=== PATIENT | female | born 1985 | race Caucasian/White ===

== ENCOUNTER 2016-09-20 10:13 | Emergency (ER) | payer OTHER ==
[~2016-09-20] VITALS: Ht 170.2 cm; Wt 57.3 kg
[~2016-09-20 10:13] MED LIST: CYCL10TA9 PO; DOXY100C43 PO; HYDR-4003 PO; OXYC1TAB24 PO
[2016-09-20 10:16] VITALS: BP 109/70; PULSE 80; RESP 16; O2SAT 100
--- NOTE | 2016-09-20 10:57 | ED.REPORT ---
HPI-Abd Pain F Under 40 Date of Service Sep 20, 2016 ED Provider: Sharan Payton MD Pt is a 31 y/o female presenting to the ED c/o vaginal pain and bleeding onset 1 day ago. The patient states that she was having rough sex for 4 days straight 1 day prior to onset and starting yesterday has been experiencing worsening vaginal pain and bleeding for 1 day. Her bleeding is described as more than a period although her period is scheduled to start in about 2 weeks. Inserting tampons causes intense discomfort. Associated symptoms include nausea. She has had 2 laparoscopies for endometriosis in the past and her pain now is much different.She denies fever, abdominal pain, vomiting, dysuria, bloody stool, hematuria Nursing Notes Stated Complaint: BLEEDING Chief Complaint: Female Abdominal Pain Nursing Notes Reviewed: Yes Allergies: Coded Allergies: Penicillins (Verified Allergy, Intermediate, 02/14/16) rash all over amoxicillin (Verified Allergy, Unknown, 02/14/16) tramadol HCl (Verified Allergy, Unknown, 02/14/16) Scheduled Doxycycline Monohyd (Doxycycline Monohyd) 100 Mg Capsule 100 MG PO BID Scheduled PRN Cyclobenzaprine (Cyclobenzaprine) 10 Mg Tablet 10 MG PO BID PRN PRN Spasm Hydrocodone-Acetaminophen 5-325 mg (Hydrocodone-Acetaminophen 5-325 mg) 1 Each Tablet 1 TABLET PO Q4H PRN PRN For Pain Hydrocodone-Acetaminophen 5-325 mg (Hydrocodone-Acetaminophen 5-325 mg) 1 Each Tablet 1-2 TABLET PO Q4H PRN PRN For Pain Ibuprofen (Ibuprofen) 800 Mg Tablet 800 MG PO TID PRN PRN For Pain oxyCODONE-Acetaminophen 5-325 mg (oxyCODONE-Acetaminophen 5-325 mg) 1 Each Tablet 1-2 TAB PO Q6H PRN PRN For Pain General Time Seen by MD: 10:56 Chief Complaint Other (pelvic pain and vag bleeding) Hx Obtained From: Patient Arrived By: Walk-in Sudden in Onset?: No Onset Occurred: Yesterday Symptom Duration: Since onset Progression since Onset: Gradually worsening Location: : Pelvis Quality: Painful Radiation: : Does not radiate Severity: Current: Moderate Severity: Maximum: Moderate Similar Sx Previous: No Past Medical History Past Medical History h/o cholelithiasis endometriosis back problems h/o pericarditis h/o pleurisy Nephrolithiasis Ureteral colic and stone with stenting DJD L4L5 bursitis to right hip sciatica Past Surgical History ureteral stent laparoscopy x2 x3 Family History Noncontributory Smoking History Former Smoker Social History Alcohol Use: Denies alcohol use Drug Use: Denies drug use Other Social History: Good social support, Ambulatory Status Independent Review of Systems Constitutional: Denies: Chills, Fever Respiratory: Denies: Non-productive cough, Shortness of breath Cardiovascular: Denies: Chest pain, Dyspnea on exertion GI: Reports: Nausea, Denies: Abdominal pain, Bloody/tarry stool, Vomiting Female: Reports: Pelvic pain, Vaginal bleeding - abnl, Denies: Dysuria, Hematuria Complete sys rev & neg: except as marked. Physical Exam Initial Vital Signs Vital Signs (First) Date Time Temp Pulse Resp B/P Pulse Ox O2 Delivery O2 Flow Rate FiO2 09/20/16 10:16 36.8 80 16 109/70 100 Room Air Initial VS: Reviewed, Vital signs normal Head / Eyes: Atraumatic, Normocephalic, PERRL ENT: Mucous membranes moist, Conjunctiva normal, No scleral icterus Neck: Supple, Full range of motion Extremities: Vascular intact, Neuro intact, No swelling, No tenderness Skin: Warm, Dry, No cyanosis Neurologic: Alert, Oriented, Nonfocal Psychiatric: Mood/affect normal, Behavior normal, Normal thought content General/Constitutional: Awake, Alert, No acute distress, Cooperative, Not toxic appearing Respiratory / Chest: Atraumatic, Breath sounds NL, Breath sounds = bilat, No respiratory distress, No rales, No rhonchi, No wheezing, No retractions, No stridor, No chest tenderness, No chest wall deformity, No crepitus Cardiovascular: Heart rate NL, Regular rhythm, Heart sounds NL, No gallop, No murmurs, No rubs, Cap refill not delayed, Peripheral circulation NL Abdomen: Atraumatic, No distention, No palpable mass Tenderness/Guarding/Rebound: Positive: Guarding involuntary, Tender RLQ... ( Moderate) Positive Psoas sign Female Genitourinary: Cell Cleaner present (ALEX Tucker), External genitalia NL, No discharge, No foreign body, No adnexal mass Minor epithelial abrasion at introitus. Along entire vaginal canal minor abrasions which are sensitive to touch and tender. Bleeding from cervix, dark and bright red blood. Nonparous cervix. No overt hemmorrhagic bleeding. Manual exam: Significant cervical motion tenderness. Uterus not enlarged Interpretation & Diagnostics Lab Results Interpretation Result Diagram: 09/20/16 1125 09/20/16 1125 Test 09/20/16 11:03 09/20/16 11:17 09/20/16 11:25 Hold Urine Received (Received) Urine Color Yellow (YELLOW) Urine Appearance Hazy (CLEAR,HAZY) Urine pH 6.0 (5.0-8.0) Urine Specific [place] 1.025 (1.003-1.035) Urine Protein Negativemg/dL (NEG,TRACE) Urine Glucose (UA) Negativemg/dL (NEGATIVE) Urine Ketones Negativemg/dL (NEGATIVE) Urine Occult Blood Negative (NEGATIVE) Urine Nitrite Negative (NEGATIVE) Urine Bilirubin Negative (NEGATIVE) Urine Urobilinogen Normalmg/dL (NORMAL) Urine Leukocyte Esterase Negative (NEGATIVE) Urine RBC 3-10/hpf (0-2) Urine WBC 0-5/hpf (0-5) Urine Epithelial Cells Occasional/hpf (NONE-MOD) Urine Crystals None seen (NONE SEEN) Urine Bacteria Few/hpf (NONE-FEW) Urine Hyaline Casts None/lpf (NONE) Urine Granular Casts None seen (NONE SEEN) Urine Waxy Casts None seen (NONE SEEN) Urine Red Blood Cell Casts None seen (NONE SEEN) Urine White Blood Cell Casts None seen (NONE SEEN) Urine Mucus None seen (None Seen) Urine Trichomonas None seen (NONE SEEN) Urine Yeast None (NONE SEEN) Urinalysis Comment None Urine Culture Reflexed Not indicated White Blood Count 5.1th/mm3 (3.8-10.1) Red Blood Count 4.01mil/mm3 (3.90-5.20) Hemoglobin 11.3g/dL (12.0-15.6) Hematocrit 36.2% (35.0-46.0) Mean Corpuscular Volume 90.3fL (81-100) Mean Corpuscular Hemoglobin 28.2pg (27.0-35.0) Mean Corpuscular Hemoglobin Concent 31.2% (32.0-37.0) Red Cell Distribution Width 14.5% (12.3-15.4) Platelet Count 246bil/L (150-400) Neutrophils (%) (Auto) 41.2% (40-74) Lymphocytes (%) (Auto) 46.1% (14-46) Monocytes (%) (Auto) 10.5% (4-12) Eosinophils (%) (Auto) 1.8% (0-5) Basophils (%) (Auto) 0.2% (0-3) Sodium Level 138mEq/L (134-144) Potassium Level 3.9mEq/L (3.5-5.2) Chloride Level 101mEq/L (97-108) Carbon Dioxide Level 25mmol/L (18-29) Blood Urea Nitrogen 15mg/dL (6-20) Creatinine 0.67mg/dL (0.57-1.00) Estimat Glomerular Filtration Rate 148mL/min (>59) Glucose Level 96mg/dL (60-99) Calcium Level 9.4mg/dL (8.5-10.1) Magnesium Level 1.7mg/dL (1.6-2.6) Total Bilirubin 0.2mg/dL (0.0-1.2) Aspartate Amino Transf (AST/SGOT) 25U/L (0-50) Alanine Aminotransferase (ALT/SGPT) 15U/L (0-32) Alkaline Phosphatase 50U/L (25-150) Total Protein 6.9g/dL (6.4-8.4) Albumin 3.9g/dL (3.4-5.0) Lipase 46U/L (13-60) Hold [place] Tube Received (Received) US Focused non-OB Pelvis Negative per tech - official pending Exam Performed by: [facility] pract Exam Type: Diagnostic Exam Interpreted by: [facility] pract Re-Eval/Medical Decision Re-Evaluation/Progress : Time of Eval: 12:37 Patient Status: Condition improved, Moderate relief, Pain improved Re-Evaluation/Progress Note: Pt rechecked. Informed pt of plan for treatment. Pt understands and agrees with plan for treatment. F/U instructions and RTER warnings given. All questions addressed. Counseled Regarding: Diagnosis, Lab results, Need for follow-up, When/why to return to ED Discharge & Departure Primary Impression: Vaginal trauma Encounter type: initial encounter Qualified Code: S39.93XA - Unspecified injury of pelvis, initial encounter Disposition: Home Discharge Condition All VS Reviewed: Yes Condition: Stable Additional Instructions: No dangerous injury is identified. The majority of the bleeding is coming from the cervix itself. There are numerous small superficial abrasions within the vagina. I recommend ibuprofen 800 mg every 8 hours. Hydrocodone/APAP 1 or 2 as needed for more severe pain. Follow-up right away for fainting, excessive vomiting, fever greater than 101 or other new or severe symptoms. Referrals: [facility] Scribe Attestation Portions of this note were transcribed by Thang Paula. I, Dr. Payton personally performed the history, physical exam and medical decision-making; I reviewed and confirmed the accuracy of the information in the transcribed note. Signed by Thang Paula and Sara Landrum, 09/20/16 - 1115 Sharan Payton MD Sep 20, 2016 10:57 THANG PAULA Sep 20, 2016 11:09
[2016-09-20] MEDS ORDERED: 0.9% Sodium Chloride 1,000 ML IV ONE (11:09)
[2016-09-20] MEDS ORDERED: HYDROmorphone 1 mg/mL Inj IVPUSH PRN (11:10)
[2016-09-20 11:36] LABS: BASOPHILS % (AUTO) 0.2 % (0-3); EOSINOPHILS % (AUTO) 1.8 % (0-5); MONOCYTES % (AUTO) 10.5 % (4-12); Mean Corpuscular Hemoglobin 28.2 pg (27.0-35.0); Mean Corpuscular Volume 90.3 fL (81-100); NEUTROPHILS % (AUTO) 41.2 % (40-74); Platelet Count 246 bil/L (150-400)
[2016-09-20 11:40] LABS: APPEARANCE,URINE HAZY (CLEAR,HAZY); COLOR,URINE YELLOW (YELLOW); OCCULT BLOOD,URINE NEGATIVE (NEGATIVE); UROBILINOGEN,URINE NORMAL (NORMAL)
[2016-09-20 12:07] LABS: Magnesium 1.7 mg/dL (1.6-2.6)
[2016-09-20] MEDS ORDERED: HYDROmorphone 1 mg/mL Inj IVPUSH ONE (12:10)
[2016-09-20] MEDS ORDERED: IBUP800T28 PO (12:42)
[2016-09-20] MEDS ORDERED: HYDR-4003 PO (12:42)
[2016-09-20 12:52] VITALS: BP 106/61; PULSE 52; RESP 20; O2SAT 100
--- NOTE | 2016-09-20 13:21 | DRSVH ---
PROCEDURE: US PELVIC SONOGRAM INDICATIONS: pelvic pain TECHNIQUE: Real-time scanning was performed of the pelvic organs, with image documentation. Additional endovagi nal scanning was not performed. COMPARISON: None. FINDINGS: (orthogonal measurements) Uterus size: 9.71 cm, 4.71 cm Endometrium thickness: 9.20 mm Right ovary size: 2.92 cm, 1.69 cm, 1.96 cm Left ovary size: 2.97 cm, 1.74 cm, 1.84 cm Transabdominal scanning: Limited scanning through the kidneys shows no hydronephrosis. No pathologi c free abdominal or pelvic fluid. Endovaginal scanning: Uterus: Uterus is normal in size and appearance. Endometrium is within normal physiologic limits. Ovaries: Within normal physiologic limits. IMPRESSION: No source for pelvic pain identified sonographically. Dictated by: Tony Guerrero [facility] Interpreted: Taylor Gusman MD on 09/20/2016 at 13:20 Transcribed by: GABRIEL on 09/20/2016 at 13:21 Approved by: Taylor Gusman MD, PhD on 09/20/2016 at 16:43
== END 2016-09-20 12:48 | disposition home or self-care (01) ==
LOC: SED 10:13
DX: S39.93XA Unspecified injury of pelvis, initial encounter (principal); X58.XXXA Exposure to other specified factors, initial encounter; Y93.89 Activity, other specified; Y92.89 Other specified places as the place of occurrence of the external cause; Y99.8 Other external cause status; Z96.0 Presence of urogenital implants; Z87.891 Personal history of nicotine dependence; Z88.0 Allergy status to penicillin; Z88.1 Allergy status to other antibiotic agents; Z88.5 Allergy status to narcotic agent
CPT/HCPCS: 76856; 80053; 81000; 81025; 83690; 83735; 85025; 96361; 96374; 96376; 99285; J1170; J7030

== ENCOUNTER 2016-10-28 20:04 | Emergency (ER) | payer MEDICAID, OTHER ==
[~2016-10-28] VITALS: Ht 172.7 cm; Wt 59.1 kg
[~2016-10-28 20:04] MED LIST changes: +IBUP800T28 PO
[2016-10-28 20:06] VITALS: BP 127/82; PULSE 122; RESP 20; O2SAT 98
--- NOTE | 2016-10-28 20:15 | ED.REPORT ---
HPI-Abd Pain F Under 40 Date of Service October 28, 2016 ED Provider: Dr. Salinas Pt is a healthy 31 year old female who presents to the ED with complaints of nausea, vomiting and abdominal pain that started several days ago. She denies any diarrhea, cough, fevers, shortness of breath, chest pain or any other complaints. She reports that her abdominal pain has been diffuse and worsens with eating. To her knowledge, she is not . Nursing Notes Stated Complaint: STOMACH PAIN Chief Complaint: Female Abdominal Pain Nursing Notes Reviewed: Yes Allergies: Coded Allergies: Penicillins (Verified Allergy, Intermediate, 10/28/16) rash all over amoxicillin (Verified Allergy, Unknown, 10/28/16) tramadol HCl (Verified Allergy, Unknown, 10/28/16) Scheduled Doxycycline Monohyd (Doxycycline Monohyd) 100 Mg Capsule 100 MG PO BID Scheduled PRN Cyclobenzaprine (Cyclobenzaprine) 10 Mg Tablet 10 MG PO BID PRN PRN Spasm Hydrocodone-Acetaminophen 5-325 mg (Hydrocodone-Acetaminophen 5-325 mg) 1 Each Tablet 1 TABLET PO Q4H PRN PRN For Pain Hydrocodone-Acetaminophen 5-325 mg (Hydrocodone-Acetaminophen 5-325 mg) 1 Each Tablet 1-2 TABLET PO Q4H PRN PRN For Pain Ibuprofen (Ibuprofen) 800 Mg Tablet 800 MG PO TID PRN PRN For Pain oxyCODONE-Acetaminophen 5-325 mg (oxyCODONE-Acetaminophen 5-325 mg) 1 Each Tablet 1-2 TAB PO Q6H PRN PRN For Pain General Time Seen by MD: 20:15 Chief Complaint Abdominal pain Hx Obtained From: Patient Arrived By: Walk-in Sudden in Onset?: Yes Onset Occurred: 3 days ago Symptom Duration: Since onset Location: : Diffuse Quality: Painful Severity: Current: Mild Severity: Maximum: Moderate Similar Sx Previous: Yes Past Medical History Past Medical History h/o cholelithiasis endometriosis back problems h/o pericarditis h/o pleurisy Nephrolithiasis Ureteral colic and stone with stenting DJD L4L5 bursitis to right hip sciatica Past Surgical History ureteral stent laparoscopy x2 x3 Family History Noncontributory Smoking History Former Smoker Social History Occasional THC use Alcohol Use: Denies alcohol use Drug Use: Denies drug use Other Social History: Good social support, Ambulatory Status Independent Review of Systems Constitutional: Denies: Chills, Fever, Malaise, Weakness - generalized Respiratory: Denies: Non-productive cough, Shortness of breath, Wheezing Cardiovascular: Denies: Chest pain, Syncope GI: Reports: Abdominal pain, Nausea, Vomiting, Denies: Constipation, Diarrhea Female: Denies: Dysuria Musculoskeletal: Denies: Back pain, Extremity pain, Neck pain Complete sys rev & neg: except as marked. Physical Exam Initial Vital Signs Vital Signs (First) Date Time Temp Pulse Resp B/P Pulse Ox O2 Delivery O2 Flow Rate FiO2 10/28/16 20:06 37.3 122 20 127/82 98 Room Air Initial VS: Reviewed Head / Eyes: Atraumatic, Normocephalic, PERRL ENT: Mucous membranes moist, Conjunctiva normal, No scleral icterus Neck: Supple, Non-tender, Full range of motion Skin: Warm, Dry, No cyanosis Neurologic: Alert, Oriented, Nonfocal General/Constitutional: Awake, Alert Distress / Hydration: Positive: Distress moderate Appearance / Presentation: Positive: Uncomfortable Actively vomiting Respiratory / Chest: Atraumatic, Breath sounds NL, Breath sounds = bilat, No respiratory distress Cardiovascular: Heart rate NL, Regular rhythm, Heart sounds NL, No gallop, No murmurs, No rubs Abdomen: No guarding, No rebound Tenderness/Guarding/Rebound: Positive: Tender RUQ... (Moderate) Back: Atraumatic, Inspection NL, Non-tender Interpretation & Diagnostics Lab Results Interpretation Result Diagram: 10/28/16 2100 10/28/16 2100 Test 10/28/16 21:00 10/28/16 21:20 White Blood Count 7.2th/mm3 (3.8-10.1) Red Blood Count 4.36mil/mm3 (3.90-5.20) Hemoglobin 13.0g/dL (12.0-15.6) Hematocrit 39.1% (35.0-46.0) Mean Corpuscular Volume 90fL (81-100) Mean Corpuscular Hemoglobin 29.8pg (27.0-35.0) Mean Corpuscular Hemoglobin Concent 33.2% (32.0-37.0) Red Cell Distribution Width 13.9% (12.3-15.4) Platelet Count 315bil/L (150-400) Neutrophils (%) (Auto) 51.1% (40-74) Lymphocytes (%) (Auto) 42.1% (14-46) Monocytes (%) (Auto) 5.8% (4-12) Eosinophils (%) (Auto) 0.6% (0-5) Basophils (%) (Auto) 0.4% (0-3) Sodium Level 141mEq/L (134-144) Potassium Level 3.8mEq/L (3.5-5.2) Chloride Level 101mEq/L (97-108) Carbon Dioxide Level 26mmol/L (18-29) Blood Urea Nitrogen 13mg/dL (6-20) Creatinine 0.60mg/dL (0.57-1.00) Estimat Glomerular Filtration Rate 168mL/min (>59) Glucose Level 98mg/dL (60-99) Lactic Acid Level 1.2mmol/L (0.4-2.0) Calcium Level 9.4mg/dL (8.5-10.1) Magnesium Level 2.0mg/dL (1.6-2.6) Total Bilirubin 0.3mg/dL (0.0-1.2) Aspartate Amino Transf (AST/SGOT) 28U/L (0-50) Alanine Aminotransferase (ALT/SGPT) 17U/L (0-32) Alkaline Phosphatase 89U/L (25-150) Total Protein 7.8g/dL (6.4-8.4) Albumin 4.4g/dL (3.4-5.0) Lipase 61U/L (13-60) Human Chorionic Gonadotropin, Qual <0.500 (Negative) Urine Color Yellow (YELLOW) Urine Appearance Clear (CLEAR,HAZY) Urine pH 6.0 (5.0-8.0) Urine Specific [place] 1.030 (1.003-1.035) Urine Protein Negativemg/dL (NEG,TRACE) Urine Glucose (UA) Negativemg/dL (NEGATIVE) Urine Ketones Negativemg/dL (NEGATIVE) Urine Occult Blood Large (NEGATIVE) Urine Nitrite Negative (NEGATIVE) Urine Bilirubin Negative (NEGATIVE) Urine Urobilinogen 1.0mg/dL (NORMAL) Urine Leukocyte Esterase Negative (NEGATIVE) Urine RBC 11-50/hpf (0-2) Urine WBC 0-5/hpf (0-5) Urine Epithelial Cells None/hpf (NONE-MOD) Urine Crystals None seen (NONE SEEN) Urine Bacteria Few/hpf (NONE-FEW) Urine Hyaline Casts None/lpf (NONE) Urine Granular Casts None seen (NONE SEEN) Urine Waxy Casts None seen (NONE SEEN) Urine Red Blood Cell Casts None seen (NONE SEEN) Urine White Blood Cell Casts None seen (NONE SEEN) Urine Mucus None seen (None Seen) Urine Trichomonas None seen (NONE SEEN) Urine Yeast None (NONE SEEN) Urinalysis Comment None Urine Culture Reflexed Not indicated Lab Results Interpretation: US abdomen: Impression: hepatic echogenicity in the upper normal range to borderline steatosis, statistically. Otherwise morphologically unremarkable exam. CT Abd / Pelvis Interpretation Impression: No signs of appendicitis, diverticulitis or mechanical obstruction. Large amount of intracolonic stool and colonic distention. Other findings above. Study type: Abdominal CT IV contrast Re-Eval/Medical Decision Source of Hx: Old records Re-Evaluation/Progress : Time of Eval: 00:34 Re-Evaluation/Progress Note: Pt is rechecked and informed of her US results. She reports continued pain. She is informed of the plan to CT her abdomen. She understands and agrees, all questions are addressed. Counseled Regarding: Diagnosis, Lab results, When/why to return to ED Discharge & Departure Primary Impression: Abdominal pain Abdominal location: epigastric Qualified Code: R10.13 - Epigastric pain Additional Impressions: Gastritis Gastritis type: unspecified gastritis Chronicity: acute Gastritis bleeding : presence of bleeding unspecified Qualified Code: K29.00 - Acute gastritis without bleeding Constipation Constipation type: unspecified constipation type Qualified Code: K59.00 - Constipation, unspecified Disposition: Home Discharge Condition All VS Reviewed: Yes Condition: Stable Patient Instructions: Acute Abdominal Pain (ED), Constipation (ED), Gastritis ( ED) Additional Instructions: The CT scan shows thickening of the gastric wall. You also have at least moderate constipation. Remainder of the internal organs look good. You have most likely renal cysts. Your gallbladder looked normal. I would like you to set up a follow-up with your primary care physician for later this week. Take Protonix once daily for 4 weeks. Take MiraLAX 17 g twice daily to help regulate your bowel movements. Do not drive tonight as you have received sedating medications. Return if any problems or any new or worsening symptoms. Referrals: Ashley Suarez DO (PCP) Scribmelody Attestation Portions of this note were transcribed by Edie Cee. I, Dr. Salinas personally performed the history, physical exam and medical decision-making; I reviewed and confirmed the accuracy of the information in the transcribed note. Signed by: Sara Valera, 10/28/2016 [Time]. copies to: Ashley Suarez Todd P DO October 28, 2016 20:15 JULES CEE October 28, 2016 20:58
[2016-10-28] MEDS ORDERED: 0.9% Sodium Chloride 1,000 ML IV ONE (20:59)
[2016-10-28] MEDS ORDERED: Pantoprazole 4 mg/mL 10 mL Inj IVPUSH ONE (21:00)
[2016-10-28] MEDS: Ondansetron 2 mg/mL 2 mL Inj IVPUSH PRN ×2 (21:23→23:29)
[2016-10-28] MEDS: HYDROmorphone 1 mg/mL Inj IVPUSH PRN ×3 (21:23→23:29)
[2016-10-28 21:24] LABS: BASOPHILS % (AUTO) 0.4 % (0-3); EOSINOPHILS % (AUTO) 0.6 % (0-5); MONOCYTES % (AUTO) 5.8 % (4-12); Mean Corpuscular Hemoglobin 29.8 pg (27.0-35.0); Mean Corpuscular Volume 90 fL (81-100); NEUTROPHILS % (AUTO) 51.1 % (40-74); Platelet Count 315 bil/L (150-400)
[2016-10-28 21:34] LABS: APPEARANCE,URINE CLEAR (CLEAR,HAZY); COLOR,URINE YELLOW (YELLOW); OCCULT BLOOD,URINE LARGE (NEGATIVE)
[2016-10-29 00:05] VITALS: BP 130/80; PULSE 110; RESP 18; O2SAT 97
[2016-10-29] MEDS: HYDROmorphone 1 mg/mL Inj IVPUSH PRN (01:04)
[2016-10-29] MEDS ORDERED: HYDROmorphone 1 mg/mL Inj IVPUSH ONE (01:05)
[2016-10-29 02:24] VITALS: BP 126/78; PULSE 100; RESP 17; O2SAT 98
--- NOTE | 2016-10-29 08:26 | DRSVH ---
PROCEDURE: US ABDOMEN INDICATIONS: ruq pain, vomiting TECHNIQUE: Real-time scanning was performed of the abdominal and retroperitoneal organs, with image documentatio n. COMPARISON: Located Within [facility], CT, CT ABD PELVIS W CON, 10/29/2016, 1:30. [facility], US, ABDOMEN SONOGRAM, 12/06/2013, 17:37. FINDINGS: Liver length: 16.03 cm Gallbladder Wall Thickness: 2.50 mm CBD: 1.20 mm Spleen length: 9.25 cm Right kidney length: 10.46 cm Left kidney length: 10.51 cm Aorta(Proximal): 1.66 cm Aorta(Mid): 1.33 cm Aorta(Distal): 1.28 cm RCIA: 9.40 mm LCIA: 7.50 mm Liver: Liver is normal in size and homogeneous in echotexture. Gallbladder: No gallstones. No gallbladder wall thickening, pericholecystic fluid or sonographic Mu rphy's sign. Biliary ducts: Intrahepatic bile ducts are non-dilated. Extrahepatic bile duct caliber is normal. Normal is 6-7 mm or less in diameter, or 10 mm or less post-cholecystectomy. Pancreas: Visualized portions of the pancreas are sonographically normal. Spleen: Spleen is normal in size and homogeneous in echotexture. Kidneys: Kidneys are normal in size and echotexture. No hydronephrosis or nephrolithiasis. No shu d masses. Aorta: Visualized aorta is normal in caliber at less than 3 cm. Iliacs: Proximal common iliac arteries are normal in caliber at less than 2.5 cm. IVC: Intrahepatic inferior vena cava is patent. Miscellaneous: No free abdominal fluid. IMPRESSION: Normal abdominal ultrasound exam. No significant discrepancy with the retail shift supervisor radiology preliminary report. Dictated by: Sunshine Delatorre M.D. on 10/29/2016 at 8:23 Approved by: Sunshine Delatorre M.D. on 10/29/2016 at 8:24
--- NOTE | 2016-10-29 08:31 | DRSVH ---
PROCEDURE: CT ABDOMEN AND PELVIS WITH CONTRAST ([id number]) INDICATIONS: midline abdominal pain, TECHNIQUE: After the administration of intravenous contrast, 5 mm thick sections acquired from the diaphragm to the symphysis. 5 mm coronal and sagittal reformats were acquired. For radiation dose reduction, the following was used: automated exposure control, adjustment of mA and/or kV according to patient siz e. COMPARISON: [facility], CT, ABD/PELVIS W/CON (PNL), 04/13/2009, 16:06. FINDINGS: Image quality: Excellent. ABDOMEN: Lung bases: Lung bases are clear. Heart size is normal. Solid organs: Liver and spleen are normal in size and enhancement. Gallbladder is radiographically normal. Biliary system is non dilated. Pancreas enhances normally. No adrenal nodules. Kidneys de monstrate normal size and enhancement, without hydronephrosis. Peritoneum and bowel: Bowel loops demonstrate normal wall thickness and caliber. No free fluid or a ir. Nodes and vessels: No retroperitoneal or mesenteric adenopathy by size criteria. Aorta and inferior vena cava are normal in size. Miscellaneous: No ventral hernias. PELVIS: Genitourinary: Bladder wall thickness is normal. Uterus is present with prominent endometrial strip e which is normal in a premenopausal female. Miscellaneous: No inguinal hernias or adenopathy. Bones: No suspicious bony lesions. No vertebral body compression fractures. IMPRESSION: 1. No CT evidence of acute abdominal or pelvic pathology. 2. There are no discrepancies with the pulmonary report. Dictated by: Luis Kwon M.D. on 10/29/2016 at 8:20 Approved by: Luis Kwon M.D. on 10/29/2016 at 8:29
== END 2016-10-29 02:25 | disposition home or self-care (01) ==
LOC: SED 20:04
DX: K29.00 Acute gastritis without bleeding (principal); K59.00 Constipation, unspecified; Z87.891 Personal history of nicotine dependence; Z96.0 Presence of urogenital implants; Z88.0 Allergy status to penicillin; Z88.1 Allergy status to other antibiotic agents; Z88.8 Allergy status to other drugs, medicaments and biological substances
CPT/HCPCS: 36415; 74177; 76700; 80053; 81000; 81025; 83605; 83690; 83735; 84703; 85025; 96361; 96374; 96375; 96376; 99285; J1170; J2405; J7030; Q9967

== ENCOUNTER 2016-11-12 21:35 | Emergency (ER) | payer OTHER ==
[~2016-11-12] VITALS: Ht 170.2 cm; Wt 59.1 kg
[2016-11-12 21:51] VITALS: BP 124/85; PULSE 74; RESP 18; O2SAT 99
--- NOTE | 2016-11-12 23:10 | ED.REPORT ---
HPI-General Illness Date of Service Nov 12, 2016 ED Provider: Aristeo Kim MD A 31 year old female with a history of sciatica presents to the ED due to loss of consciousness. The pt closed her car door at 20:00 tonight and hit the right side of her forehead. She briefly lost consciousness, waking up on the ground. The pt does not believe that she injured her neck during the fall. She took ibuprofen directly after this episode and rested. The pt is now complaining of a small laceration on her forehead, a headache and mild nausea but denies neck pain, blurred vision, chest pain, weakness, numbness or tingling. The pt's tetanus vaccination is up to date. Nursing Notes Stated Complaint: PASSED OUT AFTER HITTING HEAD WITH CAR DOOR Chief Complaint: Head, Face, Neck Trauma Nursing Notes Reviewed: Yes Allergies: Coded Allergies: Penicillins (Verified Allergy, Intermediate, 10/28/16) rash all over amoxicillin (Verified Allergy, Unknown, 10/28/16) tramadol HCl (Verified Allergy, Unknown, 10/28/16) Scheduled Doxycycline Monohyd (Doxycycline Monohyd) 100 Mg Capsule 100 MG PO BID Scheduled PRN Cyclobenzaprine (Cyclobenzaprine) 10 Mg Tablet 10 MG PO BID PRN PRN Spasm Hydrocodone-Acetaminophen 5-325 mg (Hydrocodone-Acetaminophen 5-325 mg) 1 Each Tablet 1 TABLET PO Q4H PRN PRN For Pain Hydrocodone-Acetaminophen 5-325 mg (Hydrocodone-Acetaminophen 5-325 mg) 1 Each Tablet 1-2 TABLET PO Q4H PRN PRN For Pain Ibuprofen (Ibuprofen) 800 Mg Tablet 800 MG PO TID PRN PRN For Pain oxyCODONE-Acetaminophen 5-325 mg (oxyCODONE-Acetaminophen 5-325 mg) 1 Each Tablet 1-2 TAB PO Q6H PRN PRN For Pain General Time Seen by : 23:07 Chief Complaint Other (Loss of consciousness) Hx Obtained From: Patient Arrived By: Walk-in Sudden in Onset?: Yes Onset Occurred: 1 - 4 hours ago Recent Healthcare: No recent hospitalization, Recent doctor visit Similar Sx Previous: No Past Medical History Past Medical History h/o cholelithiasis endometriosis back problems h/o pericarditis h/o pleurisy Nephrolithiasis Ureteral colic and stone with stenting DJD L4L5 bursitis to right hip sciatica Past Surgical History ureteral stent laparoscopy x2 x3 Family History Noncontributory Smoking History Former Smoker Social History Occasional THC use Alcohol Use: Denies alcohol use Drug Use: Denies drug use Other Social History: Good social support, Ambulatory Status Independent Review of Systems small laceration to forehead Full Review of Systems Respiratory: Denies: Non-productive cough, Shortness of breath Cardiovascular: Denies: Chest pain GI: Reports: Nausea Musculoskeletal: Denies: Neck pain Skin: Denies Rash Neurologic: Reports: Change LOC, Headache, Denies: Numbness, Vision change, Weakness Complete sys rev & neg: except as marked. Physical Exam Constitutional: Well-developed, well-nourished. Not diaphoretic. Head: Normocephalic. Small superficial abrasion to right forehead. Diffuse tenderness to the right temporal portion of the skull. Mouth/Throat: Oropharynx is clear and moist. No oropharyngeal exudate. Eyes: EOM are normal. Pupils are equal, round, and reactive to light. Neck: Supple, no tracheal deviation. Lower cervical spine tenderness. Cardiovascular: Normal rate, regular rhythm. Equal and intact distal pulses throughout. Pulmonary/Chest: Effort normal and breath sounds normal. No respiratory distress. Abdominal: Soft. No distension. There is no tenderness, rebound, or guarding. Bowel sounds present. Musculoskeletal: Range of motion grossly intact, moving all extremities. No edema or tenderness appreciated. Neurological: AOx3. Grossly nonfocal exam. Strength and sensation intact and equal to bilateral upper and lower extremities. Skin: Warm and dry, no rashes or pallor appreciated. No ecchymosis behind right ear. Psychiatric: Appropriate mood and affect. Behavior appears normal. Vital Signs Vital Signs Date Time Temp Pulse Resp B/P Pulse Ox O2 Delivery O2 Flow Rate FiO2 11/12/16 21:51 36.6 74 18 124/85 99 Room Air Initial VS: Reviewed Interpretation & Diagnostics CT Head Interpretation CONCLUSION: Normal non-contrast CT scan of the head. Interpretation / Wet Read by: Interpret - Radiologist CT C-Spine Interpretation CONCLUSION: No acute fracture or subluxation of the cervical spine. Interpretation / Wet Read by: Interpret - Radiologist Re-Eval/Medical Decision Med Decision/Clinical Course 31F w/ blunt head trauma earlier this evening. Abrasion to forehead, no need for repair at this time. Tetanus UTD. Does have some paraspinal TTP in the C-spine, but negative CT here. Don't suspect ligamentous injury clinically. Head CT neg. Plan d/c home w/ outpt f/u, careful return precautions. Pt agreeable to plan, no further questions. Source of Hx: Old records Counseled Regarding: Diagnosis, Lab results, Need for follow-up, When/why to return to ED Discharge & Departure Primary Impression: Blunt head trauma Encounter type: initial encounter Qualified Code: S09.8XXA - Other specified injuries of head, initial encounter Additional Impression: Headache Headache type: unspecified Headache chronicity pattern: acute headache Intractability: not intractable Qualified Code: R51 - Headache Disposition: Home Discharge Condition All VS Reviewed: Yes Condition: Improved Patient Instructions: Acute Headache (ED), Head Injury (ED) Additional Instructions: The CT scans of your head and neck were reassuring with no sign of fracture or other concerning indication. No dangerous cause of your headache is found in the emergency department. Take ibuprofen and Motrin as directed for pain. Rest tonight and call your primary care physician in the morning to arrange a follow up appointment this week. Return to the emergency department if you develop any new or worsening symptoms. Thank you for allowing us to be a part of your care tonight. Referrals: Ashley Suarez DO (PCP) Sara Attestation Portions of this note were transcribed by Edinson Collado. I, Dr. Kim personally performed the history, physical exam and medical decision-making; I reviewed and confirmed the accuracy of the information in the transcribed note. Signed by: Sara Santamaria, 11/13/16 and 0229. copies to: Ashley Suarez William B MD Nov 12, 2016 23:10 EDINSON COLLADO Nov 13, 2016 00:07
[2016-11-13 02:44] VITALS: BP 117/64; PULSE 68; RESP 16
--- NOTE | 2016-11-13 07:45 | DRSVH ---
PROCEDURE: CT BRAIN WITHOUT CONTRAST ([id number]) INDICATIONS: injury TECHNIQUE: Noncontrast 4.5 mm thick angled axial sections acquired from the foramen magnum to the vertex, with c oronal reformats. COMPARISON: None. FINDINGS: Image quality: Excellent. CSF spaces: Basal cisterns are patent. No extra-axial fluid collections. Ventricles are normal in size and shape. Brain: No midline shift. No intracranial masses or hemorrhage. Cabrera-white matter interface is norm al. Skull and face: Calvarium and visualized facial bones are intact, without suspicious lesions. Sinuses: Visualized sinuses and mastoids are clear. IMPRESSION: No acute intracranial disease process. Dictated by: Taylor Gusman MD, PhD on 11/13/2016 at 7:42 Approved by: Taylor Gusman MD, PhD on 11/13/2016 at 7:44
--- NOTE | 2016-11-13 08:27 | DRSVH ---
PROCEDURE: CT CERVICAL SPINE WITHOUT CONTRAST ([id number]) INDICATIONS: Fall, c spine TTP TECHNIQUE: Noncontrast 3 mm thick sections acquired from the skull base to the T4 level. Sagittal and coronal r eformats were then constructed. For radiation dose reduction, the following was used: automated exp osure control, adjustment of mA and/or kV according to patient size. COMPARISON: None. FINDINGS: Image quality: Excellent. Bones: No fractures or dislocations. Visualized superior ribs are intact. Soft tissues: Prevertebral soft tissues are normal in thickness. No paravertebral hematomas. No ap ical pneumothoraces. IMPRESSION: No fracture. No acute osseous lesion. If symptoms and/or clinical suspicion for patholo gy persists, further assessment with MRI may be helpful for further assessment. Dictated by: Taylor Gusman MD, PhD on 11/13/2016 at 8:22 Approved by: Taylor Gusman MD, PhD on 11/13/2016 at 8:25
== END 2016-11-13 02:45 | disposition home or self-care (01) ==
LOC: SED 21:35
DX: S06.9X9A Unspecified intracranial injury with loss of consciousness of unspecified duration, initial encounter (principal); S00.81XA Abrasion of other part of head, initial encounter; R51 Headache; R11.0 Nausea; W22.8XXA Striking against or struck by other objects, initial encounter; Y93.89 Activity, other specified; Y92.810 Car as the place of occurrence of the external cause; Y99.8 Other external cause status; M54.30 Sciatica, unspecified side; Z88.0 Allergy status to penicillin; Z88.1 Allergy status to other antibiotic agents; Z88.8 Allergy status to other drugs, medicaments and biological substances

== ENCOUNTER 2016-11-27 17:51 | Emergency (ER) | payer OTHER ==
[~2016-11-27] VITALS: Ht 172.7 cm; Wt 59.1 kg
[2016-11-27 18:04] VITALS: BP 121/80; PULSE 97; RESP 20; O2SAT 97
--- NOTE | 2016-11-27 19:02 | ED.REPORT ---
HPI-Back Pain Under 40 Date of Service Nov 27, 2016 ED Provider: Jorge Salinas DO Pt is a 31 year old female with a history of right sided sciatica, sacral joint disfunction, arthritis who presents to the ED complaining of increased back pain. The pt denies numbness, and any other symptoms. Pt reports that she was supposed to see Dr. Kothari today to start steroids, but the appointment was canceled and she only had enough pain medications to last until the appointment. She denies liver problems, , and alcohol use. No loss of bowel or bladder control. No urine retention. No weakness. No fever. No history of injection drug abuse. Nursing Notes Stated Complaint: SACROILIAC JOINT DYSFUNCTION,SCIATICA Chief Complaint: Back Pain or Injury Nursing Notes Reviewed: Yes Allergies: Coded Allergies: Penicillins (Verified Allergy, Intermediate, 10/28/16) rash all over amoxicillin (Verified Allergy, Unknown, 10/28/16) tramadol HCl (Verified Allergy, Unknown, 10/28/16) Scheduled Doxycycline Monohyd (Doxycycline Monohyd) 100 Mg Capsule 100 MG PO BID Scheduled PRN Cyclobenzaprine (Cyclobenzaprine) 10 Mg Tablet 10 MG PO BID PRN PRN Spasm Hydrocodone-Acetaminophen 5-325 mg (Hydrocodone-Acetaminophen 5-325 mg) 1 Each Tablet 1 TABLET PO Q4H PRN PRN For Pain Hydrocodone-Acetaminophen 5-325 mg (Hydrocodone-Acetaminophen 5-325 mg) 1 Each Tablet 1-2 TABLET PO Q4H PRN PRN For Pain Ibuprofen (Ibuprofen) 800 Mg Tablet 800 MG PO TID PRN PRN For Pain oxyCODONE-Acetaminophen 5-325 mg (oxyCODONE-Acetaminophen 5-325 mg) 1 Each Tablet 1-2 TAB PO Q6H PRN PRN For Pain General Time Seen by MD: 19:02 Chief Complaint Back pain Hx Obtained From: Patient Arrived By: Walk-in Sudden in Onset?: No Symptom Duration: Since onset Location: : Spinal sacral area Quality: Painful Severity: Current: Moderate Severity: Maximum: Moderate Recent Healthcare: Recent doctor visit Similar Sx Previous: Yes Past Medical History Past Medical History cholelithiasis endometriosis back problems pericarditis pleurisy Nephrolithiasis Ureteral colic and stone with stenting DJD L4L5 bursitis to right hip sciatica Sacral joint dysfunction arthritis Past Surgical History ureteral stent laparoscopy x2 x3 Family History Noncontributory Smoking History Former Smoker Social History Occasional THC use Alcohol Use: Denies alcohol use Drug Use: Denies drug use Other Social History: Good social support, Ambulatory Status Independent Review of Systems Respiratory: Denies: Parox nocturnal dyspnea, Shortness of breath Musculoskeletal: Reports: Back pain, Joint pain Neurologic: Denies: Numbness Complete sys rev & neg: except as marked. Physical Exam Initial Vital Signs Vital Signs (First) Date Time Temp Pulse Resp B/P Pulse Ox O2 Delivery O2 Flow Rate FiO2 11/27/16 18:04 37.4 97 20 121/80 97 Room Air Initial VS: Reviewed Head / Eyes: Atraumatic, Normocephalic, PERRL ENT: Mucous membranes moist, Conjunctiva normal, No scleral icterus Neck: Supple, Non-tender, Full range of motion Respiratory: Breath sounds normal, Clear to auscultation, No respiratory distress Abdomen / GI: Soft, Non-tender Skin: Warm, Dry, No cyanosis Psychiatric: Mood/affect normal, Behavior normal General/Constitutional: Awake, Alert, Cooperative, Not toxic appearing Flank / Spine / Paraspinal: Positive: Sacral spine tender... (Mid) No signs of cord syndrome or myelopathy. No signs of acute cauda equina syndrome. No evidence for infection. Neurologic: Oriented X3, Speech NL, No motor deficits, No sensory deficits, CN II - XII intact, Reflexes equal bilat, Cerebellar NL, Memory NL, Gait NL Cardiovascular: Heart rate NL, Regular rhythm, Heart sounds NL, No murmurs Re-Eval/Medical Decision Med Decision/Clinical Course No high risk features for abscess, cord syndrome or infection. Short course of opiates provided for pain. Dose of dexamethasone administered. Follow-up is been arranged. Routine opiate warnings given. Source of Hx: Old records Re-Evaluation/Progress : Time of Eval: 20:03 Re-Evaluation/Progress Note: Pt rechecked. Informed pt of plan for discharge. Pt understands and agrees with plan for discharge. F/U instructions and RTER warnings given. All questions addressed. Counseled Regarding: Diagnosis, Need for follow-up, When/why to return to ED Discharge & Departure Impression: Primary Impression: Sacroiliac joint pain Additional Impression: Low back pain with sciatica Chronicity: unspecified Back pain laterality: right Sciatica laterality: sciatica of right side Qualified Code: M54.41 - Lumbago with sciatica, right side Disposition: Home All VS Reviewed: Yes Condition: Stable Patient Instructions: Sciatica (ED) Additional Instructions: Do not drive tonight. Take 1-2 Percocet every 6 hours as needed. Do not drive or drink alcohol or consume acetaminophen while taking Percocet. Finish the Medrol dose pack Keep your follow up appointment and inform your primary care provider of the ED visit. Return if any problems or any new or worsening symptoms. The Percocet is an opiate and can be habit forming and is constipating so use it sparingly and only for severe pain. Referrals: Ashley Suarez DO (PCP) Sara Attestation Portions of this note were transcribed by Teri Dempsey. I, Dr. Salinas personally performed the history, physical exam and medical decision-making; I reviewed and confirmed the accuracy of the information in the transcribed note. Signed by: Sara Arguelles, 11/27/16 and 20:20 copies to: Ashley Suarez Todd P DO Nov 27, 2016 19:02 Teri Lilly Nov 27, 2016 19:36
[2016-11-27] MEDS ORDERED: oxyCODONE-Acetamin 5-325 mg Tablet PO ONE (19:35)
[2016-11-27] MEDS ORDERED: Dexamethasone 10 mg/mL Inj IM ONE (19:35)
[2016-11-27 20:24] VITALS: BP 116/77; PULSE 78; RESP 16; O2SAT 99
== END 2016-11-27 20:25 | disposition home or self-care (01) ==
LOC: SED 17:51
DX: M54.41 Lumbago with sciatica, right side (principal); Z88.2 Allergy status to sulfonamides; Z88.0 Allergy status to penicillin; Z88.1 Allergy status to other antibiotic agents; Z88.8 Allergy status to other drugs, medicaments and biological substances; Z87.891 Personal history of nicotine dependence
CPT/HCPCS: 96372; 99283; J1100

== ENCOUNTER 2017-01-27 18:44 | Emergency (ER) | payer OTHER ==
[~2017-01-27] VITALS: Ht 172.7 cm; Wt 61.3 kg
--- NOTE | 2017-01-27 19:41 | ED.REPORT ---
HPI- Female Date of Service Jan 27, 2017 ED Provider: Jorge Salinas DO A 31 year old, 15 week (G4,P3) female with a history of cholelithiasis , endometriosis, pericarditis, ureteral colic s/p stent and sciatica presents to the ED with dysuria that began a few days ago. The patient has been taking Keflex for the past week with little relief. Associated symptoms also include hematuria and mild flank pain. Her previous UTI during resulted in pyelonephritis and is currently expressing concern because her symptoms felt similar to her previous episode. Patient denies any recent fever, chills, or vaginal bleeding. Nursing Notes Stated Complaint: UTI/ 15 WKS Chief Complaint: Female Abdominal Pain Nursing Notes Reviewed: Yes Allergies: Coded Allergies: Penicillins (Verified Allergy, Intermediate, 10/28/16) rash all over amoxicillin (Verified Allergy, Unknown, 10/28/16) tramadol HCl (Verified Allergy, Unknown, 10/28/16) Scheduled Doxycycline Monohyd (Doxycycline Monohyd) 100 Mg Capsule 100 MG PO BID Scheduled PRN Cyclobenzaprine (Cyclobenzaprine) 10 Mg Tablet 10 MG PO BID PRN PRN Spasm Hydrocodone-Acetaminophen 5-325 mg (Hydrocodone-Acetaminophen 5-325 mg) 1 Each Tablet 1 TABLET PO Q4H PRN PRN For Pain Hydrocodone-Acetaminophen 5-325 mg (Hydrocodone-Acetaminophen 5-325 mg) 1 Each Tablet 1-2 TABLET PO Q4H PRN PRN For Pain Ibuprofen (Ibuprofen) 800 Mg Tablet 800 MG PO TID PRN PRN For Pain oxyCODONE-Acetaminophen 5-325 mg (oxyCODONE-Acetaminophen 5-325 mg) 1 Each Tablet 1-2 TAB PO Q6H PRN PRN For Pain General Time Seen by MD: 19:26 Chief Complaint Dysuria Hx Obtained From: Patient Arrived By: Walk-in Sudden in Onset?: No Onset Occurred: 3 days ago Context of Onset: , 1st trimester Symptom Duration: Since onset Location: : Flank left: Flank right Quality: Painful Radiation: Does not radiate Severity: Current: Mild Severity: Maximum: Mild Status: Positive - ED serum HCG : 4 Para: 3 Recent Healthcare: No recent doctor visit, No recent hospitalization Past Medical History Past Medical History cholelithiasis endometriosis back problems pericarditis pleurisy Nephrolithiasis Ureteral colic and stone with stenting DJD L4L5 bursitis to right hip sciatica Sacral joint dysfunction arthritis Past Surgical History ureteral stent laparoscopy x2 x3 Family History Noncontributory Smoking History Current Every Day Smoker Social History Occasional THC use Alcohol Use: Denies alcohol use Drug Use: Denies drug use Other Social History: Good social support, Ambulatory Status Independent Review of Systems Constitutional: Denies: Chills, Fever Female: Reports: Dysuria, Flank pain (Mild), Hematuria, (15 weeks) , Denies: Vaginal bleeding - abnl Complete sys rev & neg: except as marked. Physical Exam Initial Vital Signs Vital Signs (First) Date Time Temp Pulse Resp B/P Pulse Ox O2 Delivery O2 Flow Rate FiO2 01/27/17 20:47 36.8 81 20 108/54 100 Room Air Initial VS: Reviewed Head / Eyes: Atraumatic, Normocephalic, PERRL Neck: Supple, Non-tender, Full range of motion Extremities: Vascular intact, Neuro intact, No swelling, No tenderness Skin: Warm, Dry, No cyanosis Neurologic: Alert, Oriented, Nonfocal Psychiatric: Mood/affect normal, Behavior normal, Normal thought content Female Genitourinary: Exam deferred General/Constitutional: Awake, Alert, No acute distress, Well appearing, Well developed Respiratory / Chest: Atraumatic, Breath sounds NL, Breath sounds = bilat, No respiratory distress Cardiovascular: Heart rate NL, Regular rhythm, Heart sounds NL Abdomen: Atraumatic, Soft, Non-tender Interpretation & Diagnostics Lab Results Interpretation Result Diagram: 01/27/17194801/27/171948 Test 01/27/17 19:10 01/27/17 19:49 01/27/17 19:50 Urine Color Yellow (YELLOW) Urine Appearance Hazy (CLEAR,HAZY) Urine pH 6.0 (5.0-8.0) Urine Specific [place] 1.025 (1.003-1.035) Urine Protein Tracemg/dL (NEG,TRACE) Urine Glucose (UA) Negativemg/dL (NEGATIVE) Urine Ketones Tracemg/dL (NEGATIVE) Urine Occult Blood Large (NEGATIVE) Urine Nitrite Negative (NEGATIVE) Urine Bilirubin Negative (NEGATIVE) Urine Urobilinogen Normalmg/dL (NORMAL) Urine Leukocyte Esterase Small (NEGATIVE) Urine RBC >50/hpf (0-2) Urine WBC 6-10/hpf (0-5) Urine Epithelial Cells Moderate/hpf (NONE-MOD) Urine Crystals None seen (NONE SEEN) Urine Bacteria Few/hpf (NONE-FEW) Urine Hyaline Casts None/lpf (NONE) Urine Granular Casts None seen (NONE SEEN) Urine Waxy Casts None seen (NONE SEEN) Urine Red Blood Cell Casts None seen (NONE SEEN) Urine White Blood Cell Casts None seen (NONE SEEN) Urine Mucus None seen (None Seen) Urine Trichomonas None seen (NONE SEEN) Urine Yeast None (NONE SEEN) Urinalysis Comment None Urine Culture Reflexed Indicated Hold Urine Received (Received) White Blood Count 9.1th/mm3 (3.8-10.1) Red Blood Count 3.63mil/mm3 (3.90-5.20) Hemoglobin 11.2g/dL (12.0-15.6) Hematocrit 33.1% (35.0-46.0) Mean Corpuscular Volume 91.2fL (81-100) Mean Corpuscular Hemoglobin 30.9pg (27.0-35.0) Mean Corpuscular Hemoglobin Concent 33.8% (32.0-37.0) Red Cell Distribution Width 12.4% (12.3-15.4) Platelet Count 254bil/L (150-400) Neutrophils (%) (Auto) 71.3% (40-74) Lymphocytes (%) (Auto) 19.5% (14-46) Monocytes (%) (Auto) 8.7% (4-12) Eosinophils (%) (Auto) 0.3% (0-5) Basophils (%) (Auto) 0.1% (0-3) Sodium Level 135mEq/L (134-144) Potassium Level 3.6mEq/L (3.5-5.2) Chloride Level 101mEq/L (97-108) Carbon Dioxide Level 19mmol/L (18-29) Blood Urea Nitrogen 10mg/dL (6-20) Creatinine 0.42mg/dL (0.57-1.00) Estimat Glomerular Filtration Rate 254mL/min (>59) Glucose Level 96mg/dL (60-99) Calcium Level 9.2mg/dL (8.5-10.1) Magnesium Level 1.6mg/dL (1.6-2.6) Total Bilirubin 0.2mg/dL (0.0-1.2) Aspartate Amino Transf (AST/SGOT) 17U/L (0-50) Alanine Aminotransferase (ALT/SGPT) 14U/L (0-32) Alkaline Phosphatase 59U/L (25-150) Total Protein 6.7g/dL (6.4-8.4) Albumin 3.7g/dL (3.4-5.0) Lipase 43U/L (13-60) Hold [place] Tube Received (Received) US Focused OB No active signs of labor - no contractions Good movement Normal appearing fetus Normal amount of amniotic fluid Exam Performed by: ED physician Findings: heart rate (156) Re-Eval/Medical Decision Re-Evaluation/Progress : Time of Eval: 19:46 Patient Status: Condition improved Re-Evaluation/Progress Note: Bedside US is performed. heart rate - 156 She is informed of her results. All of his questions about the intended treatment plan are addressed. Counseled Regarding: Diagnosis, Lab results, Need for follow-up, When/why to return to ED Discharge & Departure Impression: Primary Impression: Urinary tract infection Urinary tract infection type: site unspecified Hematuria presence: with hematuria Qualified Code: N39.0 - Urinary tract infection, site not specified Disposition: Home Discharge Condition All VS Reviewed: Yes Condition: Improved Patient Instructions: Urinary Tract Infection in (ED) Additional Instructions: Thank you for entrusting us with your care today. Your emergency department evaluation today including examination, lab work, and ultrasound are reassuring that there is no dangerous cause for concern at this time and I believe your symptoms are due to a urinary tract infection Take Keflex 4 times daily for the next 7 days. Take 1 *[place] every 8 hours as needed for pain. * The medication you have been prescribed is a narcotic and may cause drowsiness. Don not drink, drive or use acetaminophen while on this medication. Please schedule a follow-up appointment with your primary care physician/OB in the next week for a recheck. Please return to the emergency department for any new or worsening conditions including any abdominal pain, blood in your urine, chest pain, shortness of breath, fevers, chills, nausea, vomiting, lightheadedness, numbness/tingling or weakness. Referrals: Ashley Suarez DO (PCP) Scribe Attestation Portions of this note were transcribed by Jeanette Merlos. I, Dr. Salinas, personally performed the history, physical exam and medical decision-making; I reviewed and confirmed the accuracy of the information in the transcribed note. Signed by: Jeanette Merlos, 01/27/17. copies to: Ashley Suarez Todd P DO Jan 27, 2017 19:41 JEANETTE MERLOS Jan 27, 2017 19:48 Jorge Salinas DO Jan 27, 2017 19:41 JEANETTE MERLOS Jan 27, 2017 19:48
[2017-01-27] MEDS ORDERED: cefTRIAXone Inj 2,000 MG in Dextrose 5% Minibag Plus 50 ML IV ONE (19:50)
[2017-01-27 19:59] LABS: BASOPHILS % (AUTO) 0.1 % (0-3); EOSINOPHILS % (AUTO) 0.3 % (0-5); MONOCYTES % (AUTO) 8.7 % (4-12); Mean Corpuscular Hemoglobin 30.9 pg (27.0-35.0); Mean Corpuscular Volume 91.2 fL (81-100); NEUTROPHILS % (AUTO) 71.3 % (40-74); Platelet Count 254 bil/L (150-400)
[2017-01-27 20:13] LABS: APPEARANCE,URINE HAZY (CLEAR,HAZY); COLOR,URINE YELLOW (YELLOW); OCCULT BLOOD,URINE LARGE (NEGATIVE)
[2017-01-27 20:15] LABS: UROBILINOGEN,URINE NORMAL (NORMAL)
[2017-01-27 20:19] LABS: Magnesium 1.6 mg/dL (1.6-2.6)
[2017-01-27] MEDS ORDERED: HYDROcodone-APAP 5-325 mg Tablet PO ONE (20:25)
[2017-01-27 20:47] VITALS: BP 108/54; PULSE 81; RESP 20; O2SAT 100
[2017-01-27 21:51] VITALS: BP 104/47; PULSE 75; RESP 20; O2SAT 100
== END 2017-01-27 21:52 | disposition home or self-care (01) ==
LOC: SED 18:44
DX: O23.42 Unspecified infection of urinary tract in pregnancy, second trimester (principal); F17.200 Nicotine dependence, unspecified, uncomplicated; Z3A.15 15 weeks gestation of pregnancy; Z88.0 Allergy status to penicillin; Z88.5 Allergy status to narcotic agent
CPT/HCPCS: 36415; 80053; 81000; 81025; 83690; 83735; 85025; 87086; 87088; 87147; 87186; 96365; 99284; J0696

== ENCOUNTER 2017-01-29 09:45 | Emergency (ER) | payer OTHER ==
[~2017-01-29] VITALS: Ht 172.7 cm; Wt 61.4 kg
[2017-01-29 09:47] VITALS: BP 109/67; PULSE 76; RESP 16; O2SAT 100
[2017-01-29] MEDS ORDERED: PREN-57 PO (10:04)
[2017-01-29] MEDS ORDERED: CEPH-511 PO (10:05)
--- NOTE | 2017-01-29 10:19 | ED.REPORT ---
HPI- Female Date of Service Jan 29, 2017 ED Provider: Shankar Riley DO Pt is a 15 week 31 y/o female who is G4,P3 w/ a hx of cholelithiasis, endometriosis, pericarditis, ureteral colic s/p stent and sciatica presents to the ED c/o worsening lower abdominal pain onset yesterday. The patient began experiencing dysuria and frequency about 5 days ago and 2 days later took a single Keflex that she had from a previous prescription. She didn't feel much better so she came to the ED 1 day later at which time her UA was consistent with UTI therefore she was treated with ceftriaxone IV 1 and started on Keflex and given [place]. These medications have not provided any symptom relief. Her urine culture is positive for what appears to be E. coli. Associated symptoms include hematuria and mild diffuse lower back pain. Pt denies fever, vomiting, chills, vaginal bleeding. Her previous UTI during resulted in pyelonephritis and hospitalization and she is currently expressing concern because her symptoms felt similar to that previous episode. Nursing Notes Stated Complaint: POSSIBLE UTI/ Chief Complaint: Female Abdominal Pain Nursing Notes Reviewed: Yes Allergies: Coded Allergies: Penicillins (Verified Allergy, Intermediate, 10/28/16) rash all over amoxicillin (Verified Allergy, Unknown, 10/28/16) tramadol HCl (Verified Allergy, Unknown, 10/28/16) Scheduled Cephalexin (Keflex) 250 Mg Capsule Unknown Dose PO QID Nitrofurantoin Monohyd/M-Cryst (MacroBid) 100 Mg Capsule 100 MG PO BID Scheduled PRN Hydrocodone-Acetaminophen 5-325 mg (Hydrocodone-Acetaminophen 5-325 mg) 1 Each Tablet 1 TABLET PO Q4H PRN PRN For Pain Phenazopyridine (Pyridium) 200 Mg Tablet 200 MG PO TID PRN PRN For Pain oxyCODONE-Acetaminophen 5-325 mg (oxyCODONE-Acetaminophen 5-325 mg) 1 Each Tablet 1-2 TAB PO Q6H PRN PRN For Pain Miscellaneous Medications Pnv No.118/Iron Fumarate/FA ( 19 Chewable Tablet) 1 Each Tab.chew 1 EACH PO General Time Seen by MD: 09:59 Chief Complaint Abdominal pain... Hx Obtained From: Patient Arrived By: Walk-in Sudden in Onset?: No Onset Occurred: 2 days ago Symptom Duration: Since onset Location: : Abdomen lower Quality: Painful Severity: Current: Moderate Severity: Maximum: Moderate Recent Healthcare: Recent doctor visit, Recent testing, Previous diagnosis, Prior workup Similar Sx Previous: Yes Past Medical History Past Medical History Hx recurrent UTIs Cholelithiasis Endometriosis Pericarditis Nephrolithiasis Ureteral colic and stone s/p stenting DJD L4-L5 Hx R hip bursitis Hx of sciatica Sacral joint dysfunction Arthritis Past Surgical History ureteral stent laparoscopy x2 x3 Family History Noncontributory Smoking History Current Every Day Smoker Social History Occasional THC use Alcohol Use: Denies alcohol use Drug Use: Denies drug use Other Social History: Good social support, Ambulatory Status Independent Review of Systems Constitutional: Denies: Chills, Fever GI: Reports: Abdominal pain, Denies: Vomiting Female: Reports: Dysuria, Hematuria, Urinary frequency, Denies: Vaginal bleeding - abnl Musculoskeletal: Reports: Lumbar pain Skin: Denies Rash Neurologic: Denies: Bladder dysfunction, Bowel dysfunction Complete sys rev & neg: except as marked. Respiratory: Denies: Shortness of breath Cardiovascular: Denies: Chest pain Physical Exam Initial Vital Signs Vital Signs (First) Date Time Temp Pulse Resp B/P Pulse Ox O2 Delivery O2 Flow Rate FiO2 01/29/17 09:47 36.8 76 16 109/67 100 01/29/17 13:12 Room Air Initial VS: Reviewed, Vital signs normal Head / Eyes: Atraumatic, Normocephalic ENT: Mucous membranes moist, Conjunctiva normal Neck: Supple, Full range of motion Respiratory: Breath sounds normal, Clear to auscultation, No respiratory distress Cardiovascular: Regular rate & rhythm, Heart sounds normal, Intact distal pulses Extremities: Vascular intact, Neuro intact, No swelling Skin: Warm, Dry, No cyanosis Neurologic: Alert, Oriented, Nonfocal Psychiatric: Mood/affect normal, Behavior normal, Normal thought content Female Genitourinary: Exam deferred General/Constitutional: Awake, Alert, No acute distress, Cooperative, Not toxic appearing Appearance / Presentation: Positive: Uncomfortable Abdomen: Atraumatic, Soft, No guarding, No rebound, No distention, No palpable mass Tenderness/Guarding/Rebound: Positive: Tender RLQ... (Mild), Tender RUQ... ( Mild) Back: Full range of motion, Painless range of motion Right CVAT present : FHTs NL (150 bpm), FHT present by U/S, Contractions not present, movement present Interpretation & Diagnostics Lab Results Interpretation Result Diagram: 01/29/17 1040 01/29/17 1040 Test 01/29/17 10:40 01/29/17 12:44 White Blood Count 7.8th/mm3 (3.8-10.1) Red Blood Count 3.67mil/mm3 (3.90-5.20) Hemoglobin 11.3g/dL (12.0-15.6) Hematocrit 33.9% (35.0-46.0) Mean Corpuscular Volume 92.4fL (81-100) Mean Corpuscular Hemoglobin 30.8pg (27.0-35.0) Mean Corpuscular Hemoglobin Concent 33.3% (32.0-37.0) Red Cell Distribution Width 12.7% (12.3-15.4) Platelet Count 260bil/L (150-400) Neutrophils (%) (Auto) 73.1% (40-74) Lymphocytes (%) (Auto) 20.2% (14-46) Monocytes (%) (Auto) 6.4% (4-12) Eosinophils (%) (Auto) 0.1% (0-5) Basophils (%) (Auto) 0.1% (0-3) Sodium Level 137mEq/L (134-144) Potassium Level 3.7mEq/L (3.5-5.2) Chloride Level 101mEq/L (97-108) Carbon Dioxide Level 23mmol/L (18-29) Blood Urea Nitrogen 5mg/dL (6-20) Creatinine 0.48mg/dL (0.57-1.00) Estimat Glomerular Filtration Rate 218mL/min (>59) Glucose Level 75mg/dL (60-99) Lactic Acid Level 1.2mmol/L (0.4-2.0) Calcium Level 8.7mg/dL (8.5-10.1) Total Bilirubin 0.2mg/dL (0.0-1.2) Aspartate Amino Transf (AST/SGOT) 14U/L (0-50) Alanine Aminotransferase (ALT/SGPT) 12U/L (0-32) Alkaline Phosphatase 57U/L (25-150) Total Protein 6.7g/dL (6.4-8.4) Albumin 3.9g/dL (3.4-5.0) Urine Color Dark yellow (YELLOW) Urine Appearance Slightly cloudy Urine pH 7.5 (5.0-8.0) Urine Specific [place] 1.015 (1.003-1.035) Urine Protein Negativemg/dL (NEG,TRACE) Urine Glucose (UA) Negativemg/dL (NEGATIVE) Urine Ketones Negativemg/dL (NEGATIVE) Urine Occult Blood Large (NEGATIVE) Urine Nitrite Negative (NEGATIVE) Urine Bilirubin Negative (NEGATIVE) Urine Urobilinogen Normalmg/dL (NORMAL) Urine Leukocyte Esterase Moderate (NEGATIVE) Urine RBC >50/hpf (0-2) Urine WBC 6-10/hpf (0-5) Urine Epithelial Cells Occasional/hpf (NONE-MOD) Urine Crystals None seen (NONE SEEN) Urine Bacteria Few/hpf (NONE-FEW) Urine Hyaline Casts None/lpf (NONE) Urine Granular Casts None seen (NONE SEEN) Urine Waxy Casts None seen (NONE SEEN) Urine Red Blood Cell Casts None seen (NONE SEEN) Urine White Blood Cell Casts None seen (NONE SEEN) Urine Mucus None seen (None Seen) Urine Trichomonas None seen (NONE SEEN) Urine Yeast None (NONE SEEN) Urinalysis Comment None Urine Culture Reflexed Indicated US Focused OB Exam Performed by: ED physician Exam Type: Diagnostic Clinical Category: Initial exam Exam Interpreted by: ED physician Indication: by patient hx Interpretation: Intrauterine , Live intrauterine preg US Renal/Urinary Tract No acute findings Exam Performed by: Allied health pract Exam Type: Diagnostic Clinical Category: Initial exam Exam Interpreted by: Allied health pract Re-Eval/Medical Decision Med Decision/Clinical Course 32-year-old female with a history of recent UTI and multiple episodes of pyelonephritis, currently at about 15 weeks, presents with UTI symptoms and right flank pain. Her renal ultrasound today is negative for pyelonephritis or hydronephrosis bilaterally. Her urine is consistent with UTI. She has been on ceftriaxone and Keflex for the past couple days and symptoms persist and worsen. Her vitals and white blood cell count were normal. I elected to switch her from Keflex to Macrobid and have her follow-up with her PCP before the end of the week for a recheck. Patient understands and agrees with the plan. Also during the exam I did a bedside ultrasound to confirm heart tones at 150. Source of Hx: Old records Re-Evaluation/Progress : Time of Eval: 12:48 Re-Evaluation/Progress Note: Pt rechecked. Appears improved. Remains experiencing urinary frequency. Discussed imaging and lab findings. Informed pt of plan for discharge. Pt understands and agrees with plan for discharge. F/U instructions and RTER warnings given. All questions addressed. Counseled Regarding: Diagnosis, Lab results, Need for follow-up, When/why to return to ED Discharge & Departure Impression: Primary Impression: UTI (urinary tract infection) Urinary tract infection type: site unspecified Hematuria presence: with hematuria Qualified Code: N39.0 - Urinary tract infection, site not specified Additional Impression: Right flank pain Disposition: Home Discharge Condition All VS Reviewed: Yes Condition: Stable Patient Instructions: Acute Abdominal Pain (ED), Urinary Tract Infection in Women (ED) Additional Instructions: The ultrasound today was reassuring. No sign of kidney stone or pyelonephritis. Labs were also reassuring. White blood cell count is normal indicating no dangerous systemic infection. Your kidney function was normal. The baby appears well today by bedside ultrasound. I think the best option today would be to switch your antibiotic as you still have symptoms on the current antibiotic after several days of treatment. The antibiotic susceptibilities of the urine culture will be available tomorrow. You can call the hospital or discuss this with your primary care doctor for the results. Take Macrobid as directed. Return to the emergency department if you experience worsening abdominal pain, high fever, persistent vomiting, severe back pain, or for any other concerning symptoms. Follow-up with your primary care doctor in 2-3 days for a recheck. Referrals: Ashley Suarez DO (PCP) Scribe Attestation Portions of this note were transcribed by Thang Nguyen. I, Dr. Riley personally performed the history, physical exam and medical decision-making; I reviewed and confirmed the accuracy of the information in the transcribed note. copies to: Ashley Suarez Gary R DO Jan 29, 2017 10:19 THANG NGUYEN Jan 29, 2017 10:28
[2017-01-29] MEDS ORDERED: HYDROcodone-APAP 7.5-325 mg Tablet PO ONE (10:35)
[2017-01-29 10:54] LABS: BASOPHILS % (AUTO) 0.1 % (0-3); EOSINOPHILS % (AUTO) 0.1 % (0-5); MONOCYTES % (AUTO) 6.4 % (4-12); Mean Corpuscular Hemoglobin 30.8 pg (27.0-35.0); Mean Corpuscular Volume 92.4 fL (81-100); NEUTROPHILS % (AUTO) 73.1 % (40-74); Platelet Count 260 bil/L (150-400)
--- NOTE | 2017-01-29 12:51 | DRSVH ---
PROCEDURE: US RENAL SONOGRAM INDICATIONS: R flank pain, hematuria, UTI, ?pylelo vs stone TECHNIQUE: Real-time scanning was performed of the kidneys and bladder, with image documentation. COMPARISON: [facility], US, US RENAL, 10/23/2015, 20:46. [facility], US, US RENAL, 09/06/2015, 17:45. FINDINGS: Kidneys: Kidneys are normal in size. Right kidney measures 11.1 cm long; left kidney measures 10.6 cm long. Right renal cortical thickness is 1.5 cm; left renal cortical thickness is 1.8 cm. Renal c ortical echotexture is normal. No hydronephrosis or nephrolithiasis. No suspicious solid mass lesio ns. Benign simple left renal cyst. Bladder: Pre-void bladder volume is 97 mL. Post-void residual is 0 mL. Pre-void images demonstrate no intraluminal masses or stones. On pre-void images, bilateral ureteral jets are noted with color Doppler interrogation. (Of note, ureteral jets may not be detectable in up to 25% of cases due to in sufficient differences in specific gravity between ureteral and bladder urine). Miscellaneous: No free pelvic fluid. IMPRESSION: Normal renal ultrasound. Dictated by: Luis Kwon M.D. on 01/29/2017 at 12:48 Approved by: Luis Kwon M.D. on 01/29/2017 at 12:50
[2017-01-29] MEDS ORDERED: Nitrofurantoin Monohyd-Macrocryst 100 mg Capsule PO ONE (12:55)
[2017-01-29] MEDS ORDERED: NITR100 PO (12:55)
[2017-01-29 13:11] LABS: APPEARANCE,URINE SLIGHTLY CLOUDY (CLEAR,HAZY); COLOR,URINE DARK YELLOW (YELLOW); OCCULT BLOOD,URINE LARGE (NEGATIVE); PH,URINE 7.5 (5.0-8.0); UROBILINOGEN,URINE NORMAL (NORMAL)
[2017-01-29 13:12] VITALS: BP 112/70; PULSE 77; RESP 16; O2SAT 100
[2017-01-29] MEDS ORDERED: PHEN-684 PO (13:13)
[2017-01-29] MEDS ORDERED: HYDR-4003 PO (13:29)
== END 2017-01-29 13:15 | disposition home or self-care (01) ==
LOC: SED 09:45
DX: O23.42 Unspecified infection of urinary tract in pregnancy, second trimester (principal); O26.892 Other specified pregnancy related conditions, second trimester; M54.5 Low back pain; O99.332 Smoking (tobacco) complicating pregnancy, second trimester; F17.200 Nicotine dependence, unspecified, uncomplicated; Z3A.15 15 weeks gestation of pregnancy; Z87.440 Personal history of urinary (tract) infections; Z87.442 Personal history of urinary calculi; Z98.890 Other specified postprocedural states; Z88.0 Allergy status to penicillin; Z88.5 Allergy status to narcotic agent

== ENCOUNTER 2017-02-07 13:03 | Emergency (ER) | payer OTHER ==
[~2017-02-07] VITALS: Ht 172.7 cm; Wt 59.1 kg
[~2017-02-07 13:03] MED LIST changes: +CEPH-511 PO; -CYCL10TA9 PO; -DOXY100C43 PO; -IBUP800T28 PO; +NITR100 PO; +PHEN-684 PO; +PREN-57 PO
[2017-02-07 13:17] VITALS: BP 120/75; PULSE 108; RESP 16; O2SAT 100
--- NOTE | 2017-02-07 15:39 | ED.REPORT ---
HPI-Headache Date of Service Feb 07, 2017 ED Provider: Dr. Salinas This is a healthy 32-year-old female who suffers with gestational migraines. She is currently in the second trimester of her third and she is having one of her classic migraine attacks. She has had migraines in her prior to pregnancies. The headache was gradual in onset. She attempted some Fioricet without relief. She now feels nauseous. The headache was not thunderclap. Headache was not the worst headache of her life. The headache was not maximal at onset. There was no associated syncope, vomiting or neck pain or stiffness. No headache. No photophobia or diplopia. has been uncomplicated aside from one urinary tract infection. Nursing Notes Stated Complaint: MIGRAINE, 16.5 WKS Chief Complaint: Headache Nursing Notes Reviewed: Yes Allergies: Coded Allergies: Penicillins (Verified Allergy, Intermediate, 10/28/16) rash all over amoxicillin (Verified Allergy, Unknown, 10/28/16) tramadol HCl (Verified Allergy, Unknown, 10/28/16) Scheduled Cephalexin (Keflex) 250 Mg Capsule Unknown Dose PO QID Nitrofurantoin Monohyd/M-Cryst (MacroBid) 100 Mg Capsule 100 MG PO BID Scheduled PRN Hydrocodone-Acetaminophen 5-325 mg (Hydrocodone-Acetaminophen 5-325 mg) 1 Each Tablet 1 TABLET PO Q4H PRN PRN For Pain Phenazopyridine (Pyridium) 200 Mg Tablet 200 MG PO TID PRN PRN For Pain oxyCODONE-Acetaminophen 5-325 mg (oxyCODONE-Acetaminophen 5-325 mg) 1 Each Tablet 1-2 TAB PO Q6H PRN PRN For Pain Miscellaneous Medications Pnv No.118/Iron Fumarate/FA ( 19 Chewable Tablet) 1 Each Tab.chew 1 EACH PO General Time Seen by MD: 15:39 Chief Complaint Migraine headache Hx Obtained From: Patient Arrived By: Walk-in Sudden in Onset?: No Onset Occurred: 2 days ago Symptom Duration: Since onset Location: : Generalized Quality: Painful Severity: Current: Severe Severity: Maximum: Severe Recent Healthcare: No recent hospitalization, Recent doctor visit Similar Sx Previous: No Past Medical History Past Medical History Hx recurrent UTIs Cholelithiasis Endometriosis Pericarditis Nephrolithiasis Ureteral colic and stone s/p stenting DJD L4-L5 Hx R hip bursitis Hx of sciatica Sacral joint dysfunction Arthritis Past Surgical History ureteral stent laparoscopy x2 x3 Family History Noncontributory Smoking History Current Every Day Smoker Social History Occasional THC use Alcohol Use: Denies alcohol use Drug Use: Denies drug use Other Social History: Good social support, Ambulatory Status Independent Review of Systems Basic Review of Systems Respiratory: No shortness of breath Cardiovascular: No chest pain, No dyspnea on exertion : No dysuria Hematologic: No bleeding Endocrine: No heat intolerance Allergy / Immune: No allergy Constitutional: Denies: Chills, Fever GI: Reports: Nausea, Denies: Abdominal pain, Vomiting Neurologic: Reports: Headache, Denies: Abnormal movement, Slurred speech Complete sys rev & neg: except as marked. Respiratory: Denies: Shortness of breath, Wheezing Cardiovascular: Denies: Chest pain Female: Denies: Vaginal bleeding - abnl Physical Exam Initial Vital Signs Vital Signs (First) Date Time Temp Pulse Resp B/P Pulse Ox O2 Delivery O2 Flow Rate FiO2 02/07/17 13:17 37.0 108 16 120/75 100 Room Air Initial VS: Reviewed ENT: Mucous membranes moist, Conjunctiva normal, No scleral icterus Respiratory: Breath sounds normal, Clear to auscultation, No respiratory distress Cardiovascular: Regular rate & rhythm, Heart sounds normal, Intact distal pulses Abdomen / GI: Soft, Non-tender, No guarding, No rebound, No distention Extremities: Vascular intact, Neuro intact, No swelling, No tenderness Skin: Warm, Dry, No cyanosis Psychiatric: Mood/affect normal, Behavior normal, Normal thought content General/Constitutional: Awake, Alert Head / Eyes: Atraumatic, Normocephalic, PERRL, EOMI, No nystagmus, No periorbital swelling, No photophobia Neck: Atraumatic, Supple, No meningismus, Full range of motion, No adenopathy, No swelling, No midline vertebral tend Neurologic: Oriented X3, Speech NL, No motor deficits, No sensory deficits, CN II - XII intact, Cerebellar NL, Memory NL, Gait NL Thorough neurological exam normal. Interpretation & Diagnostics Lab Results Interpretation Result Diagram: 02/07/17 1605 02/07/17 1605 Test 02/07/17 16:05 02/07/17 16:30 White Blood Count 13.3th/mm3 (3.8-10.1) Red Blood Count 3.71mil/mm3 (3.90-5.20) Hemoglobin 11.5g/dL (12.0-15.6) Hematocrit 34.7% (35.0-46.0) Mean Corpuscular Volume 93.5fL (81-100) Mean Corpuscular Hemoglobin 31.0pg (27.0-35.0) Mean Corpuscular Hemoglobin Concent 33.1% (32.0-37.0) Red Cell Distribution Width 13.4% (12.3-15.4) Platelet Count 280bil/L (150-400) Neutrophils (%) (Auto) 72.5% (40-74) Lymphocytes (%) (Auto) 18.2% (14-46) Monocytes (%) (Auto) 7.8% (4-12) Eosinophils (%) (Auto) 0.9% (0-5) Basophils (%) (Auto) 0.1% (0-3) Sodium Level 135mEq/L (134-144) Potassium Level 4.5mEq/L (3.5-5.2) Chloride Level 100mEq/L (97-108) Carbon Dioxide Level 22mmol/L (18-29) Blood Urea Nitrogen 8mg/dL (6-20) Creatinine 0.41mg/dL (0.57-1.00) Estimat Glomerular Filtration Rate 259mL/min (>59) Glucose Level 63mg/dL (60-99) Calcium Level 8.9mg/dL (8.5-10.1) Total Bilirubin 0.2mg/dL (0.0-1.2) Aspartate Amino Transf (AST/SGOT) 29U/L (0-50) Alanine Aminotransferase (ALT/SGPT) 14U/L (0-32) Alkaline Phosphatase 58U/L (25-150) Total Protein 7.5g/dL (6.4-8.4) Albumin 3.7g/dL (3.4-5.0) Hold [place] Tube Received (Received) Urine Color Yellow (YELLOW) Urine Appearance Clear (CLEAR,HAZY) Urine pH 7.0 (5.0-8.0) Urine Specific [place] 1.015 (1.003-1.035) Urine Protein Negativemg/dL (NEG,TRACE) Urine Glucose (UA) 250mg/dL (NEGATIVE) Urine Ketones Negativemg/dL (NEGATIVE) Urine Occult Blood Negative (NEGATIVE) Urine Nitrite Negative (NEGATIVE) Urine Bilirubin Negative (NEGATIVE) Urine Urobilinogen Normalmg/dL (NORMAL) Urine Leukocyte Esterase Negative (NEGATIVE) Urine RBC 0-2/hpf (0-2) Urine WBC 0-5/hpf (0-5) Urine Epithelial Cells None/hpf (NONE-MOD) Urine Crystals None seen (NONE SEEN) Urine Bacteria None/hpf (NONE-FEW) Urine Hyaline Casts None/lpf (NONE) Urine Granular Casts None seen (NONE SEEN) Urine Waxy Casts None seen (NONE SEEN) Urine Red Blood Cell Casts None seen (NONE SEEN) Urine White Blood Cell Casts None seen (NONE SEEN) Urine Mucus None seen (None Seen) Urine Trichomonas None seen (NONE SEEN) Urine Yeast None (NONE SEEN) Urinalysis Comment None Urine Culture Reflexed Not indicated Re-Eval/Medical Decision Med Decision/Clinical Course In summary this is a healthy 32-year-old female who suffers with gestational headaches. This headache is been identical to prior headaches. I discussed with her MRI or CT. She feels she needs neither of these tests. She would like symptomatic relief. I do not feel that she is any evidence of meningitis whatsoever. She does not have a stiff neck or fever. She was medicated looked and felt much better. Laboratory work shows an expected leukocytosis and otherwise normal. We will have close outpatient follow-up. If she does develop a thunderclap headache or fever or any new or worrisome symptoms she will come right back and we will rediscuss imaging and lumbar puncture. Re-Evaluation/Progress : Time of Eval: 17:46 )( Patient Status: Condition improved Re-Evaluation/Progress Note: Discussed plan for discharge. Pt understands and agrees. Counseled Regarding: Diagnosis, Lab results, Need for follow-up, When/why to return to ED Discharge & Departure Impression: Primary Impression: Headache Headache type: unspecified Headache chronicity pattern: unspecified pattern Intractability: intractable Qualified Code: R51 - Headache Additional Impression: Weeks of gestation: 16 weeks Qualified Code: Z3A.16 - 16 weeks gestation of Disposition: Home Discharge Condition All VS Reviewed: Yes Condition: Improved Patient Instructions: Acute Headache (ED) Additional Instructions: Rest today. Do not drive because you received sedating substances. Your urine showed that you're spilling glucose in your urine so this will need to be followed up with your enterprise account executive. Your blood glucose is 63. Return to the ER if you develop any fever or neck stiffness. If you do, we need to do a CT scan and consider a lumbar puncture as discussed. Call your primary care doctor tomorrow for follow up in the next few days. Referrals: Ashley Suarez DO (PCP) Sara Attestation Portions of this note were transcribed by Arabella Serra. I, Dr. Salinas personally performed the history, physical exam and medical decision-making; I reviewed and confirmed the accuracy of the information in the transcribed note. Signed by : Sara Jones, 02/07/2017. copies to: Ashley Suarez Todd P DO Feb 07, 2017 15:39 ARABELLA SERRA Feb 07, 2017 15:49
[2017-02-07] MEDS ORDERED: Dexamethasone Inj 10 MG in 0.9% Sodium Chloride-Pha MIX 50 ML IV ONE (15:40)
[2017-02-07] MEDS ORDERED: MetoCLOpramide 5 mg/mL 2 mL Inj IVPUSH ONE (15:40)
[2017-02-07] MEDS ORDERED: 0.9% Sodium Chloride 1,000 ML IV ONE (15:40)
[2017-02-07] MEDS ORDERED: Sodium Chloride LOK Flush 10 mL Syringe IVFLUSH SCH (16:30)
[2017-02-07 16:36] LABS: BASOPHILS % (AUTO) 0.1 % (0-3); EOSINOPHILS % (AUTO) 0.9 % (0-5); MONOCYTES % (AUTO) 7.8 % (4-12); Mean Corpuscular Volume 93.5 fL (81-100); NEUTROPHILS % (AUTO) 72.5 % (40-74); Platelet Count 280 bil/L (150-400)
[2017-02-07 17:02] LABS: APPEARANCE,URINE CLEAR (CLEAR,HAZY); COLOR,URINE YELLOW (YELLOW); OCCULT BLOOD,URINE NEGATIVE (NEGATIVE); UROBILINOGEN,URINE NORMAL (NORMAL)
[2017-02-07 17:38] VITALS: BP 87/61; PULSE 86; RESP 17; O2SAT 100
[2017-02-07] MEDS ORDERED: HYDROcodone-APAP 5-325 mg Tablet PO ONE (17:45)
[2017-02-07 18:18] VITALS: BP 111/54; PULSE 78; RESP 16; O2SAT 100
--- NOTE | 2017-02-07 19:11 | NUR ---
Heart Rate heard via doppler 155.
== END 2017-02-07 17:48 | disposition home or self-care (01) ==
LOC: SED 13:03
DX: O26.892 Other specified pregnancy related conditions, second trimester (principal); R51 Headache; R11.0 Nausea; O99.332 Smoking (tobacco) complicating pregnancy, second trimester; F17.200 Nicotine dependence, unspecified, uncomplicated; Z3A.16 16 weeks gestation of pregnancy; Z87.440 Personal history of urinary (tract) infections; Z98.890 Other specified postprocedural states; Z88.0 Allergy status to penicillin; Z88.5 Allergy status to narcotic agent
CPT/HCPCS: 36415; 80053; 81000; 85025; 96361; 96374; 96375; 99285; J1100; J1200; J2765; J7030

== ENCOUNTER 2017-02-09 13:37 | Emergency (ER) | payer OTHER ==
[~2017-02-09] VITALS: Ht 172.7 cm; Wt 61.4 kg
[2017-02-09 13:45] VITALS: BP 117/80; PULSE 94; RESP 18; O2SAT 100
--- NOTE | 2017-02-09 15:57 | ED.REPORT ---
HPI-Headache Date of Service Feb 09, 2017 ED Provider: Edwar Spencer DO Pt is a 17 week generally healthy 32 y/o female w/ a hx of migraines presenting to the ED c/o persistent migraine headache onset 4 days ago. The patient has a history of similar headaches during gestation and before gestation. Her headaches have lasted up to 3 days max previously. The patient took Tylenol and Fioricet at 11:00 without relief. She c/o associated photophobia, nausea, mild vomiting, intermittent lightheadedness. Pt denies fever, chills, neck pain, focal numbness/weakness, speech/vision changes, vaginal bleeding. The headache was never sudden onset or thunderclap. She was seen in the ED on February 07 for the same headache and was discharged in good condition. Nursing Notes Stated Complaint: MIGRAINE Chief Complaint: Headache Nursing Notes Reviewed: Yes Allergies: Coded Allergies: Penicillins (Verified Allergy, Intermediate, 10/28/16) rash all over amoxicillin (Verified Allergy, Unknown, 10/28/16) tramadol HCl (Verified Allergy, Unknown, 10/28/16) Scheduled Cephalexin (Keflex) 250 Mg Capsule Unknown Dose PO QID Nitrofurantoin Monohyd/M-Cryst (MacroBid) 100 Mg Capsule 100 MG PO BID Scheduled PRN Hydrocodone-Acetaminophen 5-325 mg (Hydrocodone-Acetaminophen 5-325 mg) 1 Each Tablet 1 TABLET PO Q4H PRN PRN For Pain Phenazopyridine (Pyridium) 200 Mg Tablet 200 MG PO TID PRN PRN For Pain oxyCODONE-Acetaminophen 5-325 mg (oxyCODONE-Acetaminophen 5-325 mg) 1 Each Tablet 1-2 TAB PO Q6H PRN PRN For Pain Miscellaneous Medications Pnv No.118/Iron Fumarate/FA ( 19 Chewable Tablet) 1 Each Tab.chew 1 EACH PO General Time Seen by MD: 15:46 Chief Complaint Migraine headache Hx Obtained From: Patient Arrived By: Walk-in Sudden in Onset?: No Onset Occurred: 4 days ago Symptom Duration: Since onset Location: : Generalized Quality: Aching Severity: Current: Moderate Severity: Maximum: Severe Recent Healthcare: Recent doctor visit, Recent testing, Previous diagnosis, Prior workup Similar Sx Previous: Yes Past Medical History Past Medical History Migraines Hx recurrent UTIs Cholelithiasis Endometriosis Pericarditis Nephrolithiasis Ureteral colic and stone s/p stenting DJD L4-L5 Hx R hip bursitis Hx of sciatica Sacral joint dysfunction Arthritis Past Surgical History ureteral stent laparoscopy x2 x3 Family History Noncontributory Smoking History Current Every Day Smoker Social History Occasional THC use Alcohol Use: Denies alcohol use Drug Use: Denies drug use Other Social History: Good social support, Ambulatory Status Independent Review of Systems Constitutional: Denies: Chills, Fever Eyes: Reports: Photophobia GI: Reports: Nausea, Vomiting, Denies: Abdominal pain Musculoskeletal: Denies: Neck pain Neurologic: Reports: Headache, Lightheaded, Denies: Change LOC, Focal weakness, Numbness, Slurred speech, Unable to speak , Vision change Complete sys rev & neg: except as marked. Physical Exam Initial Vital Signs Vital Signs (First) Date Time Temp Pulse Resp B/P Pulse Ox O2 Delivery O2 Flow Rate FiO2 02/09/17 13:45 36.4 94 18 117/80 100 Room Air Initial VS: Reviewed, Vital signs normal ENT: Mucous membranes moist, Conjunctiva normal Respiratory: Breath sounds normal, Clear to auscultation, No respiratory distress Cardiovascular: Regular rate & rhythm, Heart sounds normal, Intact distal pulses Abdomen / GI: Soft, Non-tender, No guarding, No rebound, No distention Extremities: Vascular intact, Neuro intact, No swelling Skin: Warm, Dry, No cyanosis Psychiatric: Mood/affect normal, Behavior normal, Normal thought content General/Constitutional: Awake, Alert, No acute distress, Cooperative, Not toxic appearing Appearance / Presentation: Positive: Uncomfortable Head / Eyes: Atraumatic, Normocephalic, PERRL Neck: Atraumatic, Supple, No swelling Some pain with ROM of the neck Neurologic: Oriented X3, Speech NL, No motor deficits, No sensory deficits, CN II - XII intact, Cerebellar NL, Memory NL : FHTs NL (140s) Interpretation & Diagnostics Lab Results Interpretation Result Diagram: 02/09/17 1705 02/09/17 1705 Test 02/09/17 17:05 White Blood Count 13.3th/mm3 (3.8-10.1) Red Blood Count 3.67mil/mm3 (3.90-5.20) Hemoglobin 11.3g/dL (12.0-15.6) Hematocrit 34.3% (35.0-46.0) Mean Corpuscular Volume 93.5fL (81-100) Mean Corpuscular Hemoglobin 30.8pg (27.0-35.0) Mean Corpuscular Hemoglobin Concent 32.9% (32.0-37.0) Red Cell Distribution Width 13.5% (12.3-15.4) Platelet Count 294bil/L (150-400) Neutrophils (%) (Auto) 73.7% (40-74) Lymphocytes (%) (Auto) 19.4% (14-46) Monocytes (%) (Auto) 6.1% (4-12) Eosinophils (%) (Auto) 0.3% (0-5) Basophils (%) (Auto) 0.1% (0-3) Sodium Level 136mEq/L (134-144) Potassium Level 3.9mEq/L (3.5-5.2) Chloride Level 99mEq/L (97-108) Carbon Dioxide Level 23mmol/L (18-29) Blood Urea Nitrogen 9mg/dL (6-20) Creatinine 0.38mg/dL (0.57-1.00) Estimat Glomerular Filtration Rate 283mL/min (>59) Glucose Level 81mg/dL (60-99) Calcium Level 9.2mg/dL (8.5-10.1) Hold [place] Tube Received (Received) CT Head Interpretation IMPRESSION: 1. No acute intracranial process. Dictated by: Katina Weeks M.D. on 02/09/2017 at 17:04 Approved by: Katina Weeks M.D. on 02/09/2017 at 17:05 Study: Head CT no contrast Interpretation / Wet Read by: Interpret - Radiologist Re-Eval/Medical Decision Re-Evaluation/Progress : Time of Eval: 16:20 Re-Evaluation/Progress Note: Discussed CT and LP vs symptomatic treatment. She would like a full evaluation today. Counseled Regarding: Diagnosis, Lab results Discharge & Departure Impression: Primary Impression: Migraine Migraine type: unspecified Status migrainosus presence: without status migrainosus Intractability: not intractable Qualified Code: G43.909 - Migraine, unspecified, not intractable, without status migrainosus Discharge Condition All VS Reviewed: Yes Condition: Stable Referrals: Ashley Suarez DO (PCP) Care Transferred to: Dr. Jorge Salinas Care Transferred at: 18:00 Scribe Attestation Portions of this note were transcribed by Thang Paula. I, Dr. Spencer personally performed the history, physical exam and medical decision-making; I reviewed and confirmed the accuracy of the information in the transcribed note. copies to: Ashley Suarez Timothy S DO Feb 09, 2017 15:57 THANG PAULA Feb 09, 2017 16:00
[2017-02-09] MEDS ORDERED: 0.9% Sodium Chloride 1,000 ML IV ONE ×3 (16:14→20:45)
[2017-02-09] MEDS ORDERED: MetoCLOpramide 5 mg/mL 2 mL Inj IVPUSH ONE (16:15)
--- NOTE | 2017-02-09 17:07 | DRSVH ---
PROCEDURE: CT BRAIN WITHOUT CONTRAST ([id number]) INDICATIONS: headache, TECHNIQUE: Noncontrast 4.5 mm thick angled axial sections acquired from the foramen magnum to the vertex, with c oronal reformats. COMPARISON: [facility], CT, CT BRAIN WO CON, 11/12/2016, 23:26. FINDINGS: Image quality: Excellent. CSF spaces: Basal cisterns are patent. No extra-axial fluid collections. Ventricles are normal in size and shape. Brain: No midline shift. No intracranial masses or hemorrhage. Cabrera-white matter interface is norm al. Skull and face: Calvarium and visualized facial bones are intact, without suspicious lesions. Sinuses: Visualized sinuses and mastoids are clear. IMPRESSION: 1. No acute intracranial process. Dictated by: Katina Weeks M.D. on 02/09/2017 at 17:04 Approved by: Katina Weeks M.D. on 02/09/2017 at 17:05
[2017-02-09 17:19] LABS: BASOPHILS % (AUTO) 0.1 % (0-3); EOSINOPHILS % (AUTO) 0.3 % (0-5); MONOCYTES % (AUTO) 6.1 % (4-12); Mean Corpuscular Hemoglobin 30.8 pg (27.0-35.0); Mean Corpuscular Volume 93.5 fL (81-100); NEUTROPHILS % (AUTO) 73.7 % (40-74); Platelet Count 294 bil/L (150-400)
[2017-02-09] MEDS ORDERED: Magnesium Sulf 2 Gm/50mL Water 2 GM in IV Premix 1 EACH IV ONE (17:30)
[2017-02-09 18:29] VITALS: BP 112/66; PULSE 80; RESP 20; O2SAT 98
[2017-02-09] MEDS ORDERED: HYDROmorphone 0.5 mg/0.5 mL iSecure Syringe IVPUSH PRN (19:10)
[2017-02-09 20:42] LABS: APPEARANCE,CSF CLEAR (CLEAR); COLOR,CSF COLORLESS (COLORLESS); WHITE BLOOD CELL,CSF 1 /mm3 (0-5)
[2017-02-09 21:12] VITALS: BP 102/56; PULSE 78; RESP 20; O2SAT 99
[2017-02-09] MEDS ORDERED: _oxyCODONE/APAP 5-325 mg Tablet PO PRN (21:15)
[2017-02-09 22:12] VITALS: BP 116/61; PULSE 96; RESP 20; O2SAT 100
== END 2017-02-09 22:12 | disposition home or self-care (01) ==
LOC: SED 13:37
DX: O99.352 Diseases of the nervous system complicating pregnancy, second trimester (principal); G43.909 Migraine, unspecified, not intractable, without status migrainosus; F12.10 Cannabis abuse, uncomplicated; O99.332 Smoking (tobacco) complicating pregnancy, second trimester; Z87.442 Personal history of urinary calculi; Z87.440 Personal history of urinary (tract) infections; Z3A.17 17 weeks gestation of pregnancy; Z88.0 Allergy status to penicillin; Z88.5 Allergy status to narcotic agent
CPT/HCPCS: 36415; 62270; 70450; 80048; 82945; 84155; 85025; 87070; 87205; 89051; 96361; 96365; 96375; 99285; J1170; J2765; J7030